=== PATIENT | male | born 1950 | race Caucasian/White ===

== ENCOUNTER 2016-02-28 09:30 | Inpatient (IN) | payer BC ==
[~2016-02-28] VITALS: Ht 193 cm; Wt 113.6 kg
[2016-02-28 08:54] LABS: BASOPHILS 0.4 % (0.0-2.0); EOSINOPHILS 1.7 % (0-7); HEMATOCRIT 44.8 % (42.0-54.0); HEMOGLOBIN 15.5 g/dL (13.5-17.5); IMMATURE GRANULOCYTES 0.2 % (0-5); LYMPHOCYTES 33.8 % (15-50); MCH 33.6 pg (26.0-34.0); MCHC 34.6 g/dL (31.0-37.0); MCV 97.2 fL (80.0-100.0); MEAN PLATELET VOLUME 10.4 fL (7.4-10.4); MONOCYTES 6.5 % (2-11); NEUTROPHILS 57.4 % (40-80); PLATELET COUNT 153 10x3/uL (130-400); RBC 4.61 10x6/uL (4.20-6.10); RDW 12.5 % (11.5-14.5); WBC 5.2 10x3/uL (4.8-10.8)
[2016-02-28 09:02] LABS: APTT 31.4 SECONDS (22.8-39.4); INR 1.06 (0.85-1.17); PROTIME 13.6 SECONDS (11.6-15.0)
[2016-02-28 09:17] LABS: CALC OSMOLALITY 278 mosm/kg (275-300); CALCIUM 9.1 mg/dL (8.5-10.1); CARBON DIOXIDE 27.4 mmol/L (21.0-32.0); CHLORIDE - SERUM 105 mmol/L (98-107); CREATININE - SERUM 0.8 mg/dL (0.6-1.3); GLUCOSE 115 mg/dL (74-106); POTASSIUM - SERUM 4.2 mmol/L (3.5-5.1); SODIUM 140 mmol/L (136-145); UREA NITROGEN 11 mg/dL (7-18); eGFR NON AFRICAN AMERICAN > 90 mL/min (90-120)
[~2016-02-28 09:30] MED LIST: PRAVACHOL40 MG PO; PRINIVIL20 MG PO; RYTHMOL225 MG PO
[2016-02-28 09:45] LABS: APPEARANCE CLEAR (CLEAR); BILIRUBIN NEGATIVE (NEGATIVE); COLOR YELLOW (YELLOW); GLUCOSE NEGATIVE (NEGATIVE); KETONE NEGATIVE (NEGATIVE); LEUKOCYTE ESTERASE 1+ (NEGATIVE); NITRITE NEGATIVE (NEGATIVE); PROTEIN NEGATIVE (NEGATIVE); SPECIFIC GRAVITY 1.015 (1.005-1.020); UROBILINOGEN NORMAL (NORMAL)
[2016-02-28 09:46] LABS: BACTERIA FEW /hpf (NONE SEEN); EPITHELIAL CELLS 0-5 /hpf (0-5); MUCUS <1+ /lpf (NONE SEEN)
[2016-03-03] VITALS (10 sets, daily range): BP systolic 96–123; BP diastolic 62–80; Ht 193 cm; Wt 113.6 kg
--- NOTE | 2016-03-03 08:34 | NUR ---
LEFT LEG AND FOOT WASHED WITH HIBICLENS AND ALCOHOL PRIOR TO CHLORPREP PER D.N.
--- NOTE | 2016-03-03 09:50 | NUR ---
RECEIVED TO ROOM 2209 AT THIS TIME FROM THE RECOVERY ROOM VIA BED. ALERT AND ORIENTED X4 AND DENIES PAIN. PEDAL PULSE PALPABLE AND STRONG. DRESSING TO LEFT KNEE INCISION C/D/I. ICE PACK IN USE. SCD'S ON AND IN WORKING ORDER. VITAL SIGNS INITIATED PER POST PROCEDURE PROTOCOL. BED ALARM ON AND IN WORKING ORDER. PT DRINKING ICE WATER WITH NAUSEA. IV TO LEFT FOREARM PATENT WITH NO S/S OF INFILTRATION PRESENT. CALL LIGHT IN REACH, WILL CONTINUE WITH PLAN OF CARE.
--- NOTE | 2016-03-03 12:21 | NUR ---
SCHEDULED ANTIBIOTIC ADMINISTERED AT THIS TIME. PERIPHERAL PULSE CHECK PERFORMED AND PEDAL PULSES PALPABLE AND STRONG TO BILATERAL LE. PT REPORTS NO PAIN HE DOES NOT HAVE SENSATION IN HIS LLE. PT IS ABLE TO WIGGLE TOES IN LEFT FOOT AND EXTREMITY IS WARM AND PINK. FIANCE AT BEDSIDE. INCENTIVE SPIROMETER IN USE INDEPENDENTLY. TELEMETRY APPLIED PER ORDER. DENIES NEEDS AT PRESENT TIME. SCD'S AND BED ALARM ON. WILL CONTINUE WITH PLAN OF CARE.
--- NOTE | 2016-03-03 14:51 | OP ---
PATIENT NAME: JAI OVALLE MEDICAL RECORD: [id number] :54 LOCATION:D.MS [facility] ADMISSION DATE:03/03/16 SURGEON: MAGGY MURPHY MD DATE OF OPERATION: 03/03/2016 PREOPERATIVE DIAGNOSIS: Severe degenerative arthritis of the left knee. POSTOPERATIVE DIAGNOSIS: Severe degenerative arthritis of the left knee. PROCEDURE: Left total knee arthroplasty. Surgeon: Maggy Murphy MD ANESTHESIA: General. INTRAOPERATIVE COMPLICATIONS: None. SUMMARY OF PATHOLOGIC FINDINGS: The patient had severe tricompartmental osteoarthritis, left knee. IMPLANTS USED: Geoff triathlon total knee arthroplasty size 7, left distal femoral with the component size 7, tibial baseplate size 7 x 16, X3 polyethylene tibial bearing insert and a size 36 x 10 symmetric patella. ESTIMATED BLOOD LOSS: 50 cc. OPERATIVE SUMMARY IN DETAIL: After obtaining the appropriate preoperative orthopedic surgery consents as well as anesthetic consultation, evaluation and clearance, the patient was brought to the operating room and placed on the operating table in supine position. After general laryngeal mask was administered, tourniquet was placed about the proximal aspect of left lower extremity. Left lower extremity was then prepped and draped in routine sterile fashion. The leg was elevated and exsanguinated, tourniquet inflated to 350 mmHg. Midline incision was taken down for paramedian arthrotomy. Patella was everted, distal femur was exposed. Soft tissue excision was done in the usual fashion. Intramedullary guide hole was created for distal femoral intramedullary guided cuts. This was followed by complete exposure of the proximal tibia, likewise guide hole was created and the proximal tibia for proximal tibial intramedullary guided cuts. The tibial cut was made followed by the appropriate measurements and Chamfer cutting of the distal femur. Trials corresponding to the size of the above-mentioned implants were put into place, taken through range of motion and found to be stable in all planes. Distal femoral and proximal tibial final preparations were followed by excision of the articular surface of the patella for replacement with 10 mm x 36 patella. These final preparations were made. The knee was then irrigated using pulsatile lavage manager care. Bone ends were dried. Final components were cemented into place. All excess cement was removed. After the cement was allowed to harden, the knee was taken through a range of motion and found to be stable in all planes with good patellar tracking. Paramedian arthrotomy was closed with #2 Ethibond followed by #1 Vicryl, 2-0 Vicryl and skin mikaela. Sterile dressings were applied. Tourniquet was deflated. The patient was awakened, taken to the recovery room in stable condition. All final needle and sponge counts were correct. TRANSINT:[id number] Voice Confirmation ID: [id number] DOCUMENT ID: [id number] OPERATIVE REPORT [id number] JAI OVALLE MD, MAGGY ALLISON at 1451 CC: [id number] DICTATION DATE: 03/03/16918 TOP COLLAR BASTER: 03/03/16950 ADM IN [place] [id number] [place] [id number]
--- NOTE | 2016-03-03 19:35 | NUR ---
RECIVED SHIFT REPORT. PT IS LYING IN BED. ALERT AND ORIENTED AND ABLE TO VERBALIZE NEEDS. IV IS PATENT AND FLUIDS ARE RUNNING PER ORDER. SCD'S ON. CPM ON AT THIS TIME. DRESSING TO LEFT KNEE C/D/I. PT DENIES ANY PAIN AT THIS TIME. NO NEEDS ARE VERBALIZED AT THIS TIME. VISITOR AT BEDSIDE. WILL CONTINUE TO MONITOR. SIDE RAILS ARE UP X 2. BED IS IN LOWEST POSITION. BED ALARM IS ON FOR SAFETY. CALL LIGHT IS WITHIN REACH.
--- NOTE | 2016-03-03 21:21 | CN ---
PATIENT NAME:JAI OVALLE MEDICAL RECORD: [id number] : 54 LOCATION:D.MS [facility] ADMIT DATE: 03/03/16 ACCOUNT: [id number] CONSULTING PHYSICIAN: GIOVANY RAGLAND DO REFERRING PHYSICIAN: MAGGY MURPHY MD DATE OF CONSULTATION: 03/03/2016 [facility] CONSULTATION HISTORY OF PRESENT ILLNESS: Mr. Ovalle is a 65-year-old white male who was seen postop medical management after undergoing a left total knee by Dr. Murphy. His primary care physician is Dr. Joel Pathak. He has a known history of osteoarthritis, hypertension, hyperlipidemia and atrial fib in the past. He apparently had some atrial fib in surgery. He has never taken anticoagulants. He denies any chest pain or shortness of breath. He is doing well right now and his pain is controlled. PAST MEDICAL HISTORY: Significant for known hypertension, atrial fibrillation, osteoarthritis and hyperlipidemia. PAST SURGICAL HISTORY: Include T&A, surgeries to the neck and back. ALLERGIES: None known. HOME MEDICATIONS: Pravastatin 40 mg a day, lisinopril 20 mg a day and Rythmol 225 q.8 hours. FAMILY HISTORY: Significant for cardiovascular disease. SOCIAL HISTORY: The patient is a previous smoker. REVIEW OF SYSTEMS: He denies any recent fever, chills or sweats. Denies any recent chest pain, shortness of breath or palpitations. No recent change in bladder or bowel habits. PHYSICAL EXAMINATION: HEENT: Head is normocephalic. Sclerae nonicteric. NECK: Soft and supple. HEART: Regular at this time. LUNGS: Good breath sounds bilaterally. ABDOMEN: Soft. EXTREMITIES: Left knee dressing is dry and intact. Distal pulses are okay. NEUROLOGIC: Without any focal deficits. IMPRESSION: 1. Status post left total knee. 2. Intermittent atrial fibrillation, hypertension, hyperlipidemia, osteoarthritis and family history of cardiovascular disease. PLAN: Telemetry for now. Repeat EKG in a.m. Monitor H&H postoperatively. We will follow along. TRANSINT:[id number] Voice Confirmation ID: [id number] DOCUMENT ID: [id number] CONSULT REPORT [id number] JAI OVALLE GIOVANY RAGLAND DO at 2121 CC: [id number] DICTATION DATE: 03/03/16 1654 ASW/ASUW TACTICAL AIR CONTROLLER: 03/03/16 193 ADM IN [facility] [address] [facility], [facility]
--- NOTE | 2016-03-03 21:37 | NUR ---
SHIFT ASSESSMENT COMPLETED. NIGHT MEDS GIVEN WITH NO PROBLEMS. PT DENIES ANY PAIN AT THIS TIME BUT IS REQUESTING A PAIN PILL. ADMINISTERED PRESCRIBED PRN NORCO PER ORDER. DENIES FURTHER NEEDS. WILL MONITOR. VISITOR AT BEDSIDE. SIDE RAILS X 2. BED LOW. BED ALARM ON. CALL LIGHT IN REACH.
[2016-03-04] VITALS (7 sets, daily range): BP systolic 95–124; BP diastolic 56–77
[2016-03-04 05:45] LABS: BASOPHILS 0 % (0.0-2.0); EOSINOPHILS 0 % (0-7); HEMATOCRIT 38.7 % (42.0-54.0); HEMOGLOBIN 13.3 g/dL (13.5-17.5); IMMATURE GRANULOCYTES 0.1 % (0-5); LYMPHOCYTES 11.4 % (15-50); MCH 33.1 pg (26.0-34.0); MCHC 34.4 g/dL (31.0-37.0); MCV 96.3 fL (80.0-100.0); MEAN PLATELET VOLUME 10.7 fL (7.4-10.4); NEUTROPHILS 81.5 % (40-80); PLATELET COUNT 149 10x3/uL (130-400); RBC 4.02 10x6/uL (4.20-6.10); RDW 12.2 % (11.5-14.5); WBC 13.5 10x3/uL (4.8-10.8)
[2016-03-04 05:58] LABS: ALBUMIN 2.9 g/dL (3.4-5.0); ALKALINE PHOSPHATASE 42 U/L (46-116); ALT (SGPT) 17 U/L (10-68); BILIRUBIN - TOTAL 0.58 mg/dL (0.2-1.3); CALC OSMOLALITY 272 mosm/kg (275-300); CALCIUM 8.5 mg/dL (8.5-10.1); CARBON DIOXIDE 25.7 mmol/L (21.0-32.0); CHLORIDE - SERUM 102 mmol/L (98-107); CREATININE - SERUM 0.8 mg/dL (0.6-1.3); GLUCOSE 169 mg/dL (74-106); POTASSIUM - SERUM 4.6 mmol/L (3.5-5.1); PROTEIN - SERUM 5.8 g/dL (6.4-8.2); SODIUM 135 mmol/L (136-145); UREA NITROGEN 10 mg/dL (7-18); eGFR NON AFRICAN AMERICAN > 90 mL/min (90-120)
--- NOTE | 2016-03-04 08:12 | NUR ---
AWAKE AND ALERT. ORIENTED X 3. LUNGS ARE CLEAR BILATERALLY, NO COUGH NOTED. INSTRUCTED IN USE OF IS WITH RETURN DEMONSTRATION. SKIN IS INTACT WITHOUT REDNESS EXCEPT INCISION TO LEFT KNEE WHICH HAS A DRY INTACT DRESSING IN PLACE. CPM REMOVED AT THIS TIME. IV TO LEFT FOREARM IS PATENT WITHOUT REDNESS AT INSERTION SITE. SCD'S IN PLACE. DENIES NEEDS.
--- NOTE | 2016-03-04 08:50 | NUR ---
SITTING UP IN BED EATING BREAKFAST. REPORTS PAIN LEVEL 2. GIVEN ONE HYDROCODONE PO FOR PAIN MANAGEMENT PRIOR TO THERAPY. WILL MONITOR.
--- NOTE | 2016-03-04 11:30 | NUR ---
SITTING UP IN CHAIR AT BEDSIDE. DISCUSSED REASONS TO USE AFO ON LEFT FOOT. WILL ASK PT ABOUT THIS. DENIES PAIN OR DISCOMFORT.
[2016-03-04 12:44] LABS: MAGNESIUM - SERUM 1.7 mg/dL (1.8-2.4); THYROID STIMULATING HORMONE 0.15 uIU/mL (0.36-3.74)
--- NOTE | 2016-03-04 15:21 | NUR ---
* Is the patient Alert and Oriented? Yes 0 * How many steps to enter\exit or inside your home? 3 0 * PCP Dr. Joel Pathak 0 * Pharmacy [facility] 0 * Preadmission Environment Home with Family 0 * ADLs Independent 0 * List name and contact numbers for known caregivers / representatives who currently or will assist patient after discharge: John Bearden [phone] 0 * Additional services required to return to the preadmission environment? Yes 0 * Can the patient safely return to the preadmission environment? Yes 0 * Has this patient been hospitalized within the prior 30 days at any hospital? No 03/04/2016 15:22 DCP: Discharge Planning Patient Name: JAI OVALLE Admission Status: Elective Accout number: [id number] Admission Date: 03-03-2016 : 1950 Admission Diagnosis: Attending: CHIKI Current LOS: 1 Anticipated DC Date: 03-06-2016 Planned Disposition: Home Primary Insurance: [employer] Discharge Planning Comments: CM met with patient to assess dc plans/needs. Patient states he lives at home with his Monisha padgett. He reports he is independent with all ADL's & IADL's. He has chosen [facility] for OP therapy. Appt. scheduled 03/07 @ 1300 - Rx faxed. Walker, CPM & BSC have been ordered by MD office prior to admission through [facility]. Walker will be delivered to the hospital prior to discharge, other to the home. CM will follow.
--- NOTE | 2016-03-04 19:25 | NUR ---
ATE ALL OF SUPPER. FIANCE AT BEDSIDE. CPM ON AT 1800. NO CHANGES NOTED. DENIES NEEDS.
--- NOTE | 2016-03-04 19:45 | NUR ---
RECIEVED SHIFT REPORT. PT IS LYING IN BED. ALERT AND ORIENTED AND ABLE TO VERBALIZE NEEDS. IV IS PATENT AND SALINE LOC AT THIS TIME. SCD'S ON. CPM ON. DRESSING TO LEFT KNEE C/D/I. PT STATES PAIN IS 5/10. NO NEEDS ARE VERBALIZED AT THIS TIME. WILL CONTINUE TO MONITOR. FAMILY AT BEDSIDE. SIDE RAILS ARE UP X 2. BED IS IN LOWEST POSITION. BED ALARM IS ON FOR SAFETY. CALL LIGHT IS WITHIN REACH.
--- NOTE | 2016-03-04 20:10 | NUR ---
SHIFT ASSESSMENT COMPLETED. NIGHT MEDS GIVEN WITH NO PROBLEMS. PT C/O PAIN 07/02. ADMINISTERED PRESCRIBED PRN NORCO PER ORDER. DENIES FURTHER NEEDS. WILL MONITOR. SIDE RAILS X 2. BED LOW. BED ALARM ON. CALL LIGHT IN REACH.
[2016-03-05 05:00] VITALS: BP 110/70
[2016-03-05 06:10] LABS: BASOPHILS 0.1 % (0.0-2.0); EOSINOPHILS 0.1 % (0-7); HEMATOCRIT 33.6 % (42.0-54.0); HEMOGLOBIN 11.5 g/dL (13.5-17.5); IMMATURE GRANULOCYTES 0.2 % (0-5); LYMPHOCYTES 20.2 % (15-50); MCH 33.3 pg (26.0-34.0); MCHC 34.2 g/dL (31.0-37.0); MCV 97.4 fL (80.0-100.0); MEAN PLATELET VOLUME 10.5 fL (7.4-10.4); MONOCYTES 9.1 % (2-11); NEUTROPHILS 70.3 % (40-80); RBC 3.45 10x6/uL (4.20-6.10); RDW 12.5 % (11.5-14.5)
[2016-03-05 06:19] LABS: PLATELET COUNT 110 10x3/uL (130-400)
[2016-03-05 07:06] LABS: ALBUMIN 2.7 g/dL (3.4-5.0); ALKALINE PHOSPHATASE 33 U/L (46-116); ALT (SGPT) 17 U/L (10-68); BILIRUBIN - TOTAL 0.61 mg/dL (0.2-1.3); CALC OSMOLALITY 273 mosm/kg (275-300); CALCIUM 7.9 mg/dL (8.5-10.1); CARBON DIOXIDE 27.4 mmol/L (21.0-32.0); CHLORIDE - SERUM 103 mmol/L (98-107); CREATININE - SERUM 0.7 mg/dL (0.6-1.3); POTASSIUM - SERUM 4.1 mmol/L (3.5-5.1); PROTEIN - SERUM 5.5 g/dL (6.4-8.2); SODIUM 137 mmol/L (136-145); UREA NITROGEN 11 mg/dL (7-18); eGFR NON AFRICAN AMERICAN > 90 mL/min (90-120)
[2016-03-05 07:08] LABS: GLUCOSE 109 mg/dL (74-106)
--- NOTE | 2016-03-05 08:27 | NUR ---
AWAKE AND ALERT. ORIENTED X3. NO C/O AT THIS TIME. LUNGS ARE CLEAR BILATERALLY, NO COUGH NOTED. REPORTS USING IS INSTRUCTED. SKIN IS INTACT WITHOUT REDNESS EXCEPT INCISION TO LEFT KNEE WHICH HAS A DRY INTACT DRESSING IN PLACE. SL TO LEFT FOREARM IS PATENT WITHOUT REDNESS AT INSERTION SITE. SCD'S IN PLACE. DENIES NEEDS. BREAKFAST SERVED IN ROOMM.
[2016-03-05 08:47] VITALS: BP 104/74
--- NOTE | 2016-03-05 09:45 | NUR ---
AMBULATED IN HALLWAY WITH PT USING RW. REQUESTED AND GIVEN ONE HYDROCODONE PO FOR C/O LEFT KNEE PAIN LEVEL 5 WITH ACTIVITY. WILL MONITOR.
[2016-03-05 12:30] VITALS: BP 106/75
[2016-03-05 17:29] VITALS: BP 112/73
--- NOTE | 2016-03-05 18:00 | NUR ---
ATE ALL OF SUPPER. NO C/O AT THIS TIME. DENIES NEEDS. CPM IN PLACE AT THIS TIME.
--- NOTE | 2016-03-05 19:33 | NUR ---
PATIENT IN SEMI-FOWLERS POSITION ON CPM MACHINE. PATIENT STATED HIS PAIN IS A 3 AND HE DOES NOT WANT ANYTHING FOR PAIN UNTIL HE GOES TO BED.
[2016-03-05 21:00] VITALS: BP 108/65
[2016-03-06 05:46] LABS: BASOPHILS 0.2 % (0.0-2.0); EOSINOPHILS 1.2 % (0-7); HEMATOCRIT 34.9 % (42.0-54.0); HEMOGLOBIN 11.6 g/dL (13.5-17.5); IMMATURE GRANULOCYTES 0.2 % (0-5); LYMPHOCYTES 28.9 % (15-50); MCHC 33.2 g/dL (31.0-37.0); MCV 99.1 fL (80.0-100.0); MEAN PLATELET VOLUME 10.9 fL (7.4-10.4); MONOCYTES 8.7 % (2-11); NEUTROPHILS 60.8 % (40-80); PLATELET COUNT 114 10x3/uL (130-400); RBC 3.52 10x6/uL (4.20-6.10); RDW 12.6 % (11.5-14.5); WBC 8.4 10x3/uL (4.8-10.8)
[2016-03-06 06:26] LABS: ALBUMIN 2.5 g/dL (3.4-5.0); ALKALINE PHOSPHATASE 32 U/L (46-116); ALT (SGPT) 16 U/L (10-68); CALC OSMOLALITY 269 mosm/kg (275-300); CHLORIDE - SERUM 100 mmol/L (98-107); CREATININE - SERUM 0.7 mg/dL (0.6-1.3); GLUCOSE 104 mg/dL (74-106); POTASSIUM - SERUM 4.3 mmol/L (3.5-5.1); PROTEIN - SERUM 5.5 g/dL (6.4-8.2); SODIUM 135 mmol/L (136-145); UREA NITROGEN 13 mg/dL (7-18); eGFR NON AFRICAN AMERICAN > 90 mL/min (90-120)
--- NOTE | 2016-03-06 07:55 | NUR ---
AWAKE AND ALERT. ORIENTED X3. NO C/O AT THIS TIME. ON CPM NOW. SCD'S IN PLACE. LUNGS ARE CLEAR BILATERALLY, NO COUGH NOTED. SKIN IS INTACT WITHOUT REDNESS EXCEPT INCISION TO LEFT KNEE WHICH HAS A DRY INTACT DRESSING IN PLACE. SL TO LEFT FOREARM IS PATENT WITHOUT REDNESS AT INSERTION SITE. DENIES NEEDS.
[2016-03-06] MEDS ORDERED: ELIQUIS2.5 MG PO (08:11)
[2016-03-06] MEDS ORDERED: HYDROCODONE-APA1 TAB PO (08:11)
[2016-03-06 09:08] VITALS: BP 124/78
--- NOTE | 2016-03-06 09:09 | NUR ---
03/06/2016 9:06 DCP: Discharge Planning Patient Name: JAI OVALLE Encounter No: [id number] : 1950 Primary Insurance: [employer] Anticipated DC Date: 03-06-2016 Planned Disposition: Outpatient PT\OT External Planned Provider: [facility] DCP follow-up note: DC order rec'd. Patient and family in agreement with discharge plan. Walker has been delivered to hospital. CPM & BSC will be delivered to the home this afternoon. Answered questions & concerns. Maria Alejandra Champion
--- NOTE | 2016-03-06 09:30 | NUR ---
DISCHARGE ORDERS RECEIVED. WAITING ON RIDE HOME.
--- NOTE | 2016-03-06 12:15 | NUR ---
DRESSING CHANGED TO LEFT KNEE. SL TO LEFT FOREARM D/C WITH CATHETER INTACT. DISCHARGE INSTRUCTIONS GIVEN BOTH VERBALLY AND WRITTEN. ALL QUESTIONS ANSWERED. PATIENT AND FAMILY VERBALIZED UNDERSTANDING OF SAME. NEEDED PRESCRIPTIONS GIVEN TO PATIENT. DISCHARGED TO HOME VIA WC.
[2016-03-06 12:30] VITALS: BP 97/67
--- NOTE | 2016-03-07 11:11 | CN ---
PATIENT NAME:JAI OVALLE MEDICAL RECORD: [id number] : 54 LOCATION:D.MS [facility] ADMIT DATE: 03/03/16 ACCOUNT: [id number] CONSULTING PHYSICIAN: JENIFER FUENTES MD REFERRING PHYSICIAN: MAGGY MURPHY MD DATE OF CONSULTATION: 03/03/2016 Cardiology Consultation ADMITTING DIAGNOSES: 1. Paroxysmal atrial fibrillation. 2. Hypertension. 3. Hyperlipidemia. HISTORY OF PRESENT ILLNESS: This is a gentleman who had a total knee done, has history of atrial fibrillation on propafenone. Initial EKG was sinus rhythm; however, today's EKG is atrial fibrillation, controlled rate. Previously, he was on Eliquis as well as the propafenone. The Eliquis is on hold. PHYSICAL EXAMINATION: GENERAL APPEARANCE: Well-nourished, well-developed, appears stated age. Level of distress, comfortable. PSYCHIATRIC: Mental status, alert, normal affect. Orientation, oriented to time, place and person. EYES: Lids and conjunctiva, noninjected. No discharge, no pallor. ENT: Lips, teeth, gums, normal dentition. Oropharynx, no cyanosis, no pallor. NECK: Carotid arteries, bilateral normal upstroke, no bruits, no thrills. JUGULAR VEINS: No jugular venous pressure or distention. CERVICAL LYMPH NODES: Nontender, nonenlarged. THYROID: Not enlarged. Nontender. No nodules. LUNGS: Respiratory effort, unlabored. CHEST: Normal curvature. No thoracic deformity. No chest wall tenderness. Percussion, resonant. Auscultation, clear. No wheezes, no rales, no rhonchi. CARDIOVASCULAR: Precordial exam, nondisplaced. No heaves or pericardial thrills. Heart sounds, normal S1, normal S2. No S3, no gallop, no rub. Systolic murmur, not heard. Diastolic murmur, not heard. EXTREMITIES: No cyanosis, no edema. Peripheral pulses, full and equal in all extremities, except as noted. No bruits appreciated. ABDOMEN: Soft, nondistended. Normal aorta. No bruit. Nontender. No masses. Liver, nontender, no hepatomegaly. Spleen, nontender, no splenomegaly. MUSCULOSKELETAL: No joint tenderness. No joint swelling. No erythema. NEUROLOGICAL: Normal gait, normal strength, normal tone. SKIN: Warm and dry. REVIEW OF SYSTEMS: The patient reports easy bruising but reports no swollen glands. The patient reports no fever, no night sweats, no significant weight gain, no significant weight loss. No significant exercise tolerance. The patient reports no dry eyes, no irritation, no vision change. Patient reports no difficulty hearing and no ear pain. Patient reports no frequent nose bleeds or nose and sinus problems. Patient reports on arm pain on exertion. No shortness of breath while lying down. No history of heart murmur. Patient reports no cough, no wheezing or coughing up blood. Patient reports no abdominal pain, no vomiting. Normal appetite. No diarrhea and not vomiting blood. No nausea and no constipation. Patient reports no incontinence. No difficulty urinating. No hematuria. No increased frequency. Patient reports CONSULT REPORT [id number] JAI OVALLE no muscle aches. No weakness, no arthralgias, no back pain. No swelling of the extremities. Patient reports no abnormal mole, no jaundice, no rashes. Reports no loss of consciousness. No weakness and no numbness. No seizures, dizziness, or headaches. The patient reports no depression, no sleep disturbance, feeling safe in a relationship and no alcohol abuse. Patient reports on fatigue. Reports no runny nose or sinus pressure. No itching, no hives, and no frequent sneezing. OVERALL IMPRESSION: Atrial fibrillation, do not know his atrial fibrillation burden. We will put him on telemetry, restart propafenone, hopefully he will convert back to sinus rhythm. TRANSINT:[id number] Voice Confirmation ID: [id number] DOCUMENT ID: [id number] JENIFER FUENTES MD at 1111 CC: [id number] DICTATION DATE: 03/03/16 1008 PRODUCTION DESIGNER: 03/03/16 1051 DIS IN 03/06/16 [place] [id number] [place] [address]
== END 2016-03-06 12:15 | disposition home or self-care (01) | DRG 470 ==
LOC: D.SDCHOLD 09:30 → D.MS 03-03 05:19 → D.SDCHOLD 03-03 05:19 → D.MS 03-03 09:35
PROVIDERS: Family Medicine; ADMIT Orthopaedic Surgery
PROC: 0SRD0J9 Replacement of Left Knee Joint with Synthetic Substitute, Cemented, Open Approach (ICD-10-PCS; principal; 2016-03-03 07:30)
DX: M17.12 Unilateral primary osteoarthritis, left knee (principal); I48.91 Unspecified atrial fibrillation; E78.5 Hyperlipidemia, unspecified; I44.0 Atrioventricular block, first degree

== ENCOUNTER 2017-03-04 05:10 | Day surgery (SDC) | payer BC ==
[2017-03-03 09:08] LABS: HEMATOCRIT 43.1 % (42.0-54.0); HEMOGLOBIN 14.9 g/dL (13.5-17.5); MCH 33.8 pg (26.0-34.0); MCHC 34.6 g/dL (31.0-37.0); MCV 97.7 fL (80.0-100.0); MEAN PLATELET VOLUME 9.4 fL (7.4-10.4); RBC 4.41 10x6/uL (4.20-6.10); RDW 14.1 % (11.5-14.5); WBC 5.6 10x3/uL (4.8-10.8)
[~2017-03-04] VITALS: Ht 193 cm; Wt 118.4 kg
--- NOTE | ~2017-03-04 | OP ---
PATIENT NAME: JAI OVALLE MEDICAL RECORD: [id number] :54 LOCATION:[facility] ADMISSION DATE: SURGEON: MAGGY MURPHY MD DATE OF OPERATION: 03/04/2017 PREOPERATIVE DIAGNOSIS: Osteomyelitis of the second toe, right foot metatarsal head with a plantar ulcer. POSTOPERATIVE DIAGNOSIS: Osteomyelitis of the second toe, right foot metatarsal head with a plantar ulcer. PROCEDURE: Excisional debridement with osteoclasis of the metatarsal head for complete removal and relief. OPERATIVE SUMMARY IN DETAIL: After obtaining the appropriate preoperative orthopedic surgery consent as well and anesthetic consultation, evaluation and clearance, the patient was brought to the operating room and placed on the operating table in supine position. After adequate general laryngeal mask airway was administered, tourniquet was placed about the proximal aspect of the right lower extremity. Right lower extremity was then prepped and draped in routine sterile fashion. The leg was elevated and exsanguinated, tourniquet inflated to 350 mmHg. An incision was made over the dislocated MTP joint, taken down. Copious amounts of phlegmon appeared, less so than they appeared to be on the MRI. This was removed in its entirety and proximal aspect of the first toe phalanx was also rongeured and it was taken back to stable noninfected feeling bone. At this point, dissection was carried down in the metatarsal head. The metatarsal head was resected for approximately 1.5. All of this bone fragment was sent for permanent section and bone culture, regular cultures were taken as well. At this point, the wound was copiously irrigated. It was closed with 2-0 Vicryl followed by 4-0 Prolene in running fashion. Sterile dressings were applied. Tourniquet was deflated. The patient was awakened and taken to recovery room in stable condition. All final needle and sponge counts were correct. TRANSINT:[id number] Voice Confirmation ID: [id number] DOCUMENT ID: [id number] MAGGY MURPHY MD at 1444 CC: [id number] DICTATION DATE: 03/05/17 1216 NATIONAL DEDICATED TRUCK DRIVER: 03/05/17 1409 [facility] 03/04/17 [place] [address]
[~2017-03-04 05:10] MED LIST changes: +BACTRIM DS TABL1 TAB PO; +CARDIZEM60 MG PO; +ELIQUIS2.5 MG PO; +HYDROCODONE-APA1 TAB PO; +XARELTO20 MG PO
[2017-03-04 10:53] VITALS: BP 126/87; Ht 193 cm; Wt 118.4 kg
[2017-03-04] MEDS ORDERED: HYDROCODONE-APA1 TAB PO (12:36)
[2017-03-04] MEDS ORDERED: BACTRIM DS TABL1 TAB PO (12:37)
== END 2017-03-04 14:50 | disposition home or self-care (01) ==
LOC: D.OPS 05:10
PROVIDERS: Anesthesiology
DX: L97.519 Non-pressure chronic ulcer of other part of right foot with unspecified severity (principal); I10 Essential (primary) hypertension; I48.91 Unspecified atrial fibrillation; M17.0 Bilateral primary osteoarthritis of knee; Z01.812 Encounter for preprocedural laboratory examination; M86.8X7 Other osteomyelitis, ankle and foot

== ENCOUNTER 2017-08-05 11:51 | Outpatient (CLI) | payer BC ==
[~2017-08-05] VITALS: Ht 190.5 cm; Wt 113.6 kg
--- NOTE | ~2017-08-05 | HEMODYNAMI ---
PATIENT:JAI OVALLE MEDICAL RECORD: [id number] : 54 LOCATION:DTorreyCAT ADMISSION DATE: 08/05/17 Generatedon:08/05/201715:06 Patient name: JAI OVALLE Patient #: [id number] SSN: D OB: 1950 Date of study: 08/05/2017 Page: Of Hemodynamic Procedure Report Patient Data Patient Demographics Procedure consent was obtained First Name: JAI Gender: Male Last Name: VASQUEZ : 1950 Middle Initial: E Age: 66 year(s) Patient #: [id number] Race: Unknown Additional ID: [id number] Contact details Address: [address] [place] [address] ROAD State: [place] City: [facility] Zip code: [address] Past Medical History Allergies: No known allergies Admission Admission Data Admission Date: 08/05/2017 Admission Time: 11:51 Lab Results Lab Result Date: 08/05/2017 Lab Result Time: 0:00 Biochemistry Name Units Result Min Max BUN mg/dl 11 --(-*--)-- 7 18 Creatinine mg/dl 0.8 --(-*--)-- 0.6 1.3 CBC Name Units Result Min Max Hemoglobin g/dl 15.5 --(-*--)-- 13.5 17.5 Procedure Procedure Types Cath Procedure Diagnostic Procedure LHC LH w/Coronaries FFR/IVUS Intra-Coronary IVUS Initial Sedation Charges Moderate Sedation up to 15 minutes Procedure Description Procedure Date Procedure Date: 08/05/2017 Procedure Start Time: 14:37 Procedure End Time: 15:03 Procedure Staff Name Function Kvng Silvestre MD Performing Physician Riley Mcgarry RT Monitor Pretty Bello RT Scrub Landon Rivas RN Nurse Procedure Data Cath Procedure Fluoroscopy Diagnostic fluoroscopy Total fluoroscopy Time: 6.6 time: 6.6 min min Diagnostic fluoroscopy Total fluoroscopy dose: dose: 1434 mGy 1434 mGy Contrast Material Contrast Material Type Amount (ml) Isovue 300 79 Entry Location Entry Primary Successful Side Size Upsize Upsize Entry Closure Cramer ccessful Closure Location (Fr) 1 (Fr) 2 (Fr) Remarks Device Remarks Radial Right 6 Fr Mechanical artery Short Compression Estimated blood loss: 10 ml Diagnostic catheters Device Type Used For End Catheter Placement DIAGNOSTIC Jacques 110cm Procedure 5Fr catheter ([id number]) Procedure Complications No complications Procedure Medications Medication Administration Route Dosage 0.9% NaCl I.V. 100 ml/hr Oxygen etCO2 Nasal cannula 2 l/min Heparin Flush Bag added to field 2 bags (1000units/500ml NS) Lidocaine 1% added to field 20 Radial Cocktail added to field 1 syringe (Verapomil 2mg/Nitro 400mcg/Heparin 1500units) Versed I.V. 2 mg Fentanyl I.V. 100 mcg Radial Cocktail I.A. 1 syringe (Verapomil 2mg/Nitro 400mcg/Heparin 1500units) Heparin Bolus I.V. 7000 units Hemodynamics Rest HGB: 15.5 (g/dl) Heart Rate: 53 (bpm) Pressure Samples Time Site Value (mmHg) Purpose Heart Use Rate(bpm) 14:40 LV 122/0,16 Snapshot 62 14:40 AO 105/68(83) Pullback 70 14:40 LV 115/0,12 Pullback 70 Gradients Valve Time Site 1 Site 2 Mean SEP/DFP Peak To Heart Use (mmHg) (sec/min) Peak Rate (mmHg) (bpm) Aortic 14:40 LV AO 3 4 10 70 115/0,12 105/68(83) Calculations Valve P-P Mean Valve Index Valve Source Name Gradient Area Flow (cm2) Aortic 10 3 10 3 Snapshots Pre Cath Intra NCS Post Cath Vital Signs Time Heart Resp SPO2 etCO2 NIBP (mmHg) Rhythm Pain Sedation Rate (ipm) (%) (mmHg) Status Level (bpm) 14:25:20 71 28 97 0 123/87(108) A-Fib 0 (11) 10(A) , No pain 14:29:59 60 21 100 11.2 127/82(107) A-Fib 0 (11) 10(A) , No pain 14:34:38 69 16 92 1.5 112/77(102) A-Fib 0 (11) 10(A) , No pain 14:39:53 59 13 90 9.7 104/72(85) A-Fib 0 (11) 9(A) , No pain 14:45:04 65 14 93 13.4 119/80(96) A-Fib 0 (11) 9(A) , No pain 14:49:43 59 15 94 11.2 122/82(96) A-Fib 0 (11) 9(A) , No pain 14:54:21 67 16 97 10.5 119/82(103) A-Fib 0 (11) 9(A) , No pain 14:59:02 65 17 98 4.5 109/73(100) A-Fib 0 (11) 9(A) , No pain 15:03:37 58 18 98 0 121/86(105) A-Fib 0 (11) 10(A) , No pain Medications Time Medication Route Dose Verified Delivered Reason Not es Effectiveness by by 14:22:48 0.9% NaCl I.V. 100 Landon Landon Per physician ml/hr Evelyn Rivas RN RN 14:22:58 Oxygen etCO2 2 l/min Landon Landon Per physician Nasal Klarissaigan Evelyn cannula RN RN 14:23:11 Heparin Flush added 2 bags Landon Landon used for Bag to Lorigan Lorrachelle procedure (1000units/500ml RN RN NS) 14:24:10 Lidocaine 1% added 20ml Landon Landon for local to vial Lorigan Lorigan anesthetic RN RN 14:24:27 Radial Cocktail added 1 Landon Landon used for (Verapomil to syringe Lorigan Lorigan procedure 2mg/Nitro RN RN 400mcg/Heparin 1500units) 14:34:29 Versed I.V. 2 mg Landon Landon for sedation Evelyn Rivas RN RN 14:34:39 Fentanyl I.V. 100 mcg Landon Landon for sedation Evelyn Rivas RN RN 14:38:23 Radial Cocktail I.A. 1 Landon Kvng for (Verapomil syringe Evelyn Silvestre MD vasodilation 2mg/Nitro RN 400mcg/Heparin 1500units) 14:52:01 Heparin Bolus I.V. 7,000 Landon Kvng for units Evelyn Silvestre MD anticoagulation [employer] Log Time Note 13:49:30 Signed procedure consent form obtained from patient. 13:49:32 Time tracking: Regular hours (M-F 7:00 - 5:00) 13:49:36 Plan of Care:Hemodynamics will remain stable., Cardiac rhythm will remain stable., Comfort level will be maintained., Respiratory function will remain adequate., Patient/ family verbilizes understanding of procedure., Procedure tolerated without complication., Recovers from procedure without complications.. 13:51:04 H&P Date Dictated: 07/28/2017 Within 30 days and on chart., H&P Addendum completed by physician on day of procedure. (MUST COMPLETE FOR ALL OUTPATIENTS). 13:51:20 Patient allergic to No known allergies 13:51:45 Lab Result : BUN 11 mg/dl 13:51:45 Lab Result : Creatinine 0.8 mg/dl 13:51:45 Lab Result : Hemoglobin 15.5 g/dl 14:06:36 Landon Rivas RN sent for patient. Start room use. 14:13:54 Patient received from Pre/Post Procedure Room to CCL 1 Alert and oriented. Tansferred to table in Supine position. 14:13:56 Warm blankets applied, and ozzie hugger turned on for patient comfort. 14:13:56 Correct patient and procedure confirmed by team. 14:13:57 ECG and BP/O2 sat monitors applied to patient. 14:14:05 Pre-procedure instructions explained to patient. 14:14:06 Pre-op teaching completed and patient verbalized understanding. 14:14:07 Family in waiting room. 14:14:09 Patient NPO since Midnight. 14:22:48 0.9% NaCl 100 ml/hr I.V. was administered by Landon Rivas RN; Per physician; 14:22:58 Oxygen 2 l/min etCO2 Nasal cannula was administered by Landon Rivas RN; Per physician; 14:23:11 Heparin Flush Bag (1000units/500ml NS) 2 bags added to field was administered by Landon Rivas RN; used for procedure; 14:24:10 Lidocaine 1% 20ml vial added to field was administered by Landon Rivas RN; for local anesthetic; 14:24:27 Radial Cocktail (Verapomil 2mg/Nitro 400mcg/Heparin 1500units) 1 syringe added to field was administered by Landon Rivas RN; used for procedure; 14:24:31 Vital chart was started 14:30:43 Baseline sample Acquired. 14:31:03 Rhythm: atrial fibrillation 14:31:05 Full Disclosure recording started 14:31:07 Is the patient allergic to Iodine/contrast media? No. 14:31:16 Is patient on blood thinner?No 14:31:16 Patient diabetic? No. 14:31:19 Previous problem with sedation/anesthesia? No ? 14:31:20 Snore? Yes 14:31:21 Sleep apnea? No 14:31:22 Deviated septum? No 14:31:22 Opens mouth fully? Yes 14:31:23 Sticks out tongue? Yes 14:31:24 Airway obstruction? No ? 14:31:27 Dentures? No ? 14:31:34 Pre procedure: right dorsailis pedis pulse 2+ Normal; easily identifiable; not easily obliterated 14:31:36 Modified Angel's test Ulnar < 7 seconds 14:31:45 Patient pain scale 0/10 ?. 14:31:59 IV patent on arrival in left forearm with 0.9% NaCl at O. 14:32:01 Lab results completed and on chart. 14:32:04 Right Radial & Right Groin area was prepped with chlora-prep and draped in sterile fashion 14:32:05 Alarms reviewed by R. N. 14:32:06 Sharps counted by scrub and verified by R.N. 14:32:10 Use device set Femoral Dx 14:32:11 ACIST Syringe (51185) opened to sterile field. 14:32:11 Bag Decanter (2002) opened to sterile field. 14:32:12 Medline Cath Pack ([id number]) opened to sterile field. 14:32:13 ACIST Hand Control (71371) opened to sterile field. 14:32:14 ACIST Manifold (77845) opened to sterile field. 14:32:14 Tegaderm 4 x 4 (1626W) opened to sterile field. 14:32:17 DIAGNOSTIC WIRE .035 260cm J wire (025879) opened to sterile field. 14:32:19 SHEATH 6Fr Prelude Radial ([id number]) opened to sterile field. 14:34:12 Physician arrived 14:34:13 --------ALL STOP TIME OUT------ 14:34:13 Final Timeout: patient, procedure, and site verified with staff and physician. All members of the team are in agreement. 14:34:15 Right Radial & Right Groin site verified by team. 14:34:17 Physical assessment completed. ASA score P 2 - A patient with mild systemic disease as per Kvng Silvestre MD. 14:34:20 Sedation plan: IV Moderate Sedation Medication:Versed, Fentanyl 14:34:29 Versed 2 mg I.V. was administered by Landon Rivas RN; for sedation; 14:34:39 Fentanyl 100 mcg I.V. was administered by Landon Rivas RN; for sedation; 14:35:03 Zero performed for pressure channel P1 14:37:22 Procedure started. 14:37:28 Local anesthetic to right radial artery with Lidocaine 1% by Kvng Silvestre MD.INITIAL ACCESS ONLY 14:37:36 A 6 Fr Short sheath was inserted into the Right Radial artery 14:38:23 Radial Cocktail (Verapomil 2mg/Nitro 400mcg/Heparin 1500units) 1 syringe I.A. was administered by Kvng Silvestre MD; for vasodilation; 14:40:13 A DIAGNOSTIC Jacques 110cm 5Fr catheter (208016) was advanced over the wire and used for Procedure. 14:40:17 LV gram done using DOMINGUEZ 14:40:18 Injector settings: Ml/sec: 5, Volume: 15, 14:40:24 EF : 60 % 14:41:22 LCA angiography performed. 14:43:02 RCA angiography performed. 14:44:09 LCA angiography performed. 14:47:38 [place] Henriette Eagleye IVUS Catheter (97681Y) opened to sterile field. 14:47:39 TUBING High Pressure Extension Tubing (Konrad) (NS9314Q) opened to sterile field. 14:47:46 BMW 300cm [place] 2 J wire ([id number]) opened to sterile field. 14:48:12 INFLATOR Merit BasixCompak (AC9729) opened to sterile field. 14:48:17 Catheter exchanged over wire. 14:51:10 GUIDE 6FR EBU 3.75 catheter ([id number]) opened to sterile field. 14:51:20 6 Fr ebu 3.75 guide catheter was inserted over the wire 14:52:01 Heparin Bolus 7,000 units I.V. was administered by Kvng Silvestre MD; for anticoagulation; 14:52:47 bmw wire advanced. 14:55:11 Wire advanced across lesion. 14:55:48 IVUS catheter advanced over wire. 14:58:19 IVUS pass to Circ lesion performed. 14:58:40 IVUS catheter removed over wire. 14:58:44 Wire removed. 14:59:08 Guide catheter removed. 14:59:27 TR BAND Large ([id number]) opened to sterile field. 14:59:48 Sheath removed intact; hemostasis achieved with Mechanical Compression to the Right Radial artery. 14:59:50 Procedure ended.(Physican Out) 15:00:14 Fluoroscopy time 06.60 minutes. 15:00:18 Fluoroscopy dose: 1434 mGy 15:00:18 Flurop Dose total: 1434 15:00:22 Contrast amount:Isovue 300 79ml. 15:00:46 Sharps counted by scrub and verified by R.N. 15:00:50 TR band inflated with 12cc of air. 15:00:51 Insertion/operative site no bleeding no hematoma. 15:00:56 Post right radial artery:stable, soft, clean and dry 15:00:58 Post Procedure Pulses reassessed and unchanged 15:00:59 Post-procedure physical assessment completed. ASA score P 2 - A patient with mild systemic disease as per Kvng Silvestre MD. 15:01:03 Post procedure rhythm: unchanged. 15:01:09 Estimated blood loss: 10 ml 15:01:10 Post procedure instruction explained to patient.Patient verbalizes understanding. 15:01:28 Patient needs reinforcement of post procedure teaching. 15:01:51 Procedure type changed to Cath procedure, Diagnostic procedure, LHC, LHC w/Coronaries, FFR/IVUS, Intra-Coronary IVUS Initial, Sedation Charges, Moderate Sedation up to 15 minutes 15:02:49 Procedure and supply charges have been captured, reviewed, submitted and are correct. 15:02:53 Procedure Complication : No complications 15:03:05 Vital chart was stopped 15:03:05 See physician's report for complete and final results. 15:03:07 Report given to Pre/Post Procedure Room. 15:03:10 Patient transfered to Pre/Post Procedure Room with Stretcher. 15:03:12 Procedure ended. 15:03:12 Full Disclosure recording stopped 15:03:15 End room use (Document Last) Device Usage Item Name Manufacture Quantity Catalog Number Hospital Part Current M inimal Lot# / Charge Number Stock Stock Serial# Code ACIST Syringe Acist 1 98430 019954 546257 233511 2 0 (02403) [employer] Inc Bag Decanter Microtek 1 228595 56979 420481 5 () Medical Inc. Medline Cath Cardinal 1 [id number] 133772 06130 500741 5 Pack Health ([id number]) ACIST Hand Acist 1 66436 638375 088579 359278 5 Control (44499) Medical Systems Inc ACIST Manifold Acist 1 99350 590829 922238 927788 5 (57812) Medical Systems Inc Tegaderm 4 x 4 3M 1 1626W 598146 726764 939827 5 (1626W) DIAGNOSTIC WIRE [place] 1 522840 209836 151952 296765 3 0 .035 260cm J wire (497059) DIAGNOSTIC Terumo 1 40-6459 584072 632326 891189 5 Jacques 110cm 5Fr catheter (067346) SHEATH 6Fr Merit 1 [id number] 811153 768716 859735 5 Prelude Radial Medical ([id number]) [place] 1 99617C 857979 386991 922390 8 Henriette Eagleye IVUS Catheter (86405U) TUBING High Merit 1 [id number] 672979 22670 670354 1 0 Pressure Medical Extension Tubing (Silvestre) (KT3379Z) BMW 300cm Castillo 1 [id number] 497697 971980 996953 5 [place] 2 J Vascular wire (7168503D) INFLATOR Merit Merit 1 BQ6123 769163 353383 912925 1 5 [employer]ent [employer] Medical (KD8787) GUIDE 6FR EBU Medtronic 1 [id number] 441833 48810 134392 1 3.75 catheter ([id number]) TR BAND Large Terumo 1 SUX51-ZVT 027826 463950 432929 4 0 (WGE74EAR) Signature Audit Courtenay Stage Time Signature Unsigned Intra-Procedure 08/05/2017 Riley Mcgarry 3:06:39 PM RT(R) Signatures Monitor : Riley Mcgarry RT Signature : Date : Time : [address] [place] [address]
[2017-08-05 12:16] VITALS: BP 135/85; Ht 190.5 cm; Wt 113.6 kg
[2017-08-05 12:39] LABS: CALC OSMOLALITY 275 mosm/kg (275-300); CALCIUM 8.8 mg/dL (8.5-10.1); CARBON DIOXIDE 24.2 mmol/L (21.0-32.0); CHLORIDE - SERUM 103 mmol/L (98-107); CREATININE - SERUM 0.8 mg/dL (0.6-1.3); GLUCOSE 87 mg/dL (74-106); POTASSIUM - SERUM 4.1 mmol/L (3.5-5.1); SODIUM 139 mmol/L (136-145); UREA NITROGEN 11 mg/dL (7-18); eGFR NON AFRICAN AMERICAN > 90 mL/min (90-120)
[2017-08-05 12:53] LABS: BASOPHILS 0.6 % (0-2); EOSINOPHILS 0.9 % (0-7); HEMATOCRIT 43.1 % (42.0-54.0); HEMOGLOBIN 15.5 g/dL (13.5-17.5); IMMATURE GRANULOCYTES 0.2 % (0-5); LYMPHOCYTES 34.3 % (15-50); MCH 35.6 pg (26.0-34.0); MCV 98.9 fL (80.0-100.0); MEAN PLATELET VOLUME 9.6 fL (7.4-10.4); MONOCYTES 10.7 % (2-11); NEUTROPHILS 53.3 % (40-80); PLATELET COUNT 188 10x3/uL (130-400); RBC 4.36 10x6/uL (4.20-6.10); RDW 13.4 % (11.5-14.5); WBC 6.4 10x3/uL (4.8-10.8)
== END 2017-08-05 19:00 | disposition home or self-care (01) ==
LOC: D.CATH 11:51
PROVIDERS: Internal Medicine Cardiovascular Disease
DX: R94.39 Abnormal result of other cardiovascular function study (principal); Z01.812 Encounter for preprocedural laboratory examination

== ENCOUNTER → 2017-11-24 14:09 | Outpatient (CLI) | payer BC ==
[2017-08-05 12:16] VITALS: BMI 31.3
[~2017-11-24 14:09] MED LIST changes: +DILAUDID2 MG PO; +ELIQUIS5 MG PO; +PACERONE200 MG PO
== END | disposition home or self-care (01) ==
LOC: D.CT 14:00
DX: I73.9 Peripheral vascular disease, unspecified (principal)

== ENCOUNTER 2017-12-07 11:20 | Day surgery (SDC) | payer BC ==
[2017-12-04 11:16] LABS: HEMATOCRIT 44.2 % (42.0-54.0); HEMOGLOBIN 15.7 g/dL (13.5-17.5); MCH 35.5 pg (26.0-34.0); MCHC 35.5 g/dL (31.0-37.0); MEAN PLATELET VOLUME 9.4 fL (7.4-10.4); RBC 4.42 10x6/uL (4.20-6.10); RDW 13.7 % (11.5-14.5); WBC 5.2 10x3/uL (4.8-10.8)
[2017-12-04 11:33] LABS: INR 1.12 (0.85-1.17)
[2017-12-04 11:34] LABS: APTT 35.3 SECONDS (22.8-39.4)
[~2017-12-07] VITALS: Ht 193 cm; Wt 111.1 kg
--- NOTE | ~2017-12-07 | OP ---
PATIENT NAME: JAI OVALLE MEDICAL RECORD: [id number] :54 LOCATION:D.OPS ADMISSION DATE: SURGEON: MAGGY MURPHY MD DATE OF OPERATION: 12/07/2017 PREOPERATIVE DIAGNOSES: 1. Osteomyelitis of the distal phalanx of the left toe. 2. Severe MTP arthritis. PROCEDURES: 1. MTP fusion, left great toe. 2. Excision of the distal phalanx of the same toe. SURGEON: Maggy Murphy MD ANESTHESIA: General. INTRAOPERATIVE COMPLICATIONS: None. SUMMARY OF PATHOLOGIC FINDINGS: The patient had severe osteoarthritis of the MTP joint with multiple osteophytes in and around the entire joint. The osteomyelitis of the distal phalanx was known. This was not explored. Excision was done to stay completely away from any portions of the infectious process. INDICATIONS: Mr. Jai Ovalle is a gentleman with a long history of drop foot as well as great toe MTP arthritis. While he wears his AFO almost all of the time. When he gets up at night, he continually stubs his toe. This led to a chronic nonhealing wound and lead to chronic osteomyelitis. While he needs other medical procedures done none will proceed until this infectious process is gone. In the meantime, he has horrible pain at the MTP joint and I felt like I could fuse his joint and take his osteomyelitis out without causing any untoward infection at the MTP fusion site. OPERATIVE SUMMARY IN DETAIL: After obtaining the appropriate preoperative orthopedic surgery consent as well as anesthetic consultation, evaluation, and clearance, the patient was brought to the operating room and placed on the operating table in the supine position. After adequate general laryngeal mask airway was administered, tourniquet was placed about the proximal aspect of left lower extremity. Left lower extremity was then prepped and draped in routine sterile fashion. Leg was elevated, exsanguinated and tourniquet was inflated to 350 mmHg. A linear incision was made over dorsal of the MTP joint. Dissection was carried down to the MTP joint splitting the extensor mechanism and retracting it. A significant amount of time was then required to take down osteophytes medially, laterally as well as dorsally. At this point, the articular surface of the MTP joint on both sides were cut in such a wedge fashion so that the patient's spinal fusion will be approximately 10 degrees extended to help with the patient's drop foot situation. The small plate from [employer] was utilized with the fusion compression screw. This was placed across the joint under fluoroscopy and then fusion was performed. This had excellent apposition with the desired angulation. Having completed this, the joint was irrigated. The extensor mechanism was closed with 2-0 Vicryl. This was followed by 4-0 Prolene in interrupted fashion. This area was then covered with an Op-Site and then attention was turned to the distal phalanx excision. A fishmouth incision was drawn and very gently the fishmouth incision was taken back to the DIP joint and the distal phalanx was disarticulated without OPERATIVE REPORT [id number] JAI OVALLE violating any of the tip area of concern. Having completed this, the area was irrigated and closed with 4-0 Prolene. Sterile dressings were applied. An L&U splint was applied. Tourniquet was deflated. The patient was awakened and then taken to recovery room in stable condition. All final needle and sponge counts were correct. TRANSINT:[id number] Voice Confirmation ID: [id number] DOCUMENT ID: [id number] JEFFREY SEPULVEDA, MAGGY ALLISON at 1351 CC: [id number] DICTATION DATE: 12/10/17 1044 SUPERVISOR SOLDERING: 12/10/17 1136 [facility] 12/07/[address] [address]
[~2017-12-07 11:20] MED LIST changes: -DILAUDID2 MG PO
[2017-12-07 12:33] VITALS: BP 150/93; Ht 193 cm; Wt 111.1 kg
[2017-12-07] MEDS ORDERED: DILAUDID2 MG PO (16:22)
== END 2017-12-07 18:00 | disposition home or self-care (01) ==
LOC: D.OPS 11:20
PROVIDERS: Anesthesiology
DX: M19.071 Primary osteoarthritis, right ankle and foot (principal); M86.9 Osteomyelitis, unspecified

== ENCOUNTER 2018-04-15 12:28 | Inpatient (IN) | payer MEDICARE, BC ==
[2018-04-15] VITALS (9 sets, daily range): BP systolic 103–149; BP diastolic 62–81; BMI 12.5
[~2018-04-15] VITALS: Ht 193 cm; Wt 108.4 kg
[~2018-04-15 12:28] MED LIST changes: +ARICEPT23 MG PO; +DILAUDID2 MG PO
[2018-04-15 12:45] LABS: HEMATOCRIT 40.9 % (42.0-54.0); HEMOGLOBIN 14.4 g/dL (13.5-17.5); MCH 35.4 pg (26.0-34.0); MCHC 35.2 g/dL (31.0-37.0); MCV 100.5 fL (80.0-100.0); MEAN PLATELET VOLUME 9.6 fL (7.4-10.4); RBC 4.07 10x6/uL (4.20-6.10); RDW 12.8 % (11.5-14.5); WBC 8.8 10x3/uL (4.8-10.8)
[2018-04-15] MEDS ORDERED: BACTRIM 400-801 TAB PO (14:41)
[2018-04-15] MEDS ORDERED: VIBRAMYCIN 100100 MG PO (14:42)
[2018-04-16] VITALS (7 sets, daily range): BP systolic 102–175; BP diastolic 64–76; Ht 193 cm; Wt 108.4 kg
[2018-04-16] MEDS ORDERED: ELIQUIS5 MG PO (17:21)
[2018-04-17] VITALS: BP 128/85
[2018-04-17 04:00] VITALS: BP 133/75
[2018-04-17 09:00] VITALS: BP 114/72
[2018-04-17 14:44] VITALS: BP 113/70
[2018-04-17 18:20] VITALS: BP 115/74
[2018-04-17 20:00] VITALS: BP 130/85
[2018-04-18] VITALS: BP 111/68
[2018-04-18 09:41] VITALS: BP 144/85
[2018-04-18 14:08] VITALS: BP 137/86
[2018-04-18 18:25] VITALS: BP 154/86
[2018-04-18 20:00] VITALS: BP 146/86
[2018-04-19 04:00] VITALS: BP 161/88
[2018-04-19 08:54] VITALS: BP 130/83
--- NOTE | 2018-04-19 10:47 | OP ---
PATIENT NAME: JAI OVALLE MEDICAL RECORD: [id number] :54 LOCATION:D.MS Bull2232 ADMISSION DATE:04/15/18 SURGEON: MAGGY MURPHY MD DATE OF OPERATION: 04/15/2018 PREOPERATIVE DIAGNOSIS: Foot ulcer of the left foot. POSTOPERATIVE DIAGNOSIS: Foot ulcer of the left foot. PROCEDURE: 1. Excisional debridement, left foot to include skin, subcutaneous tissue, portions of fat and fascia. 2. Application of allograft with additional biologics and PRP. SURGEON: Maggy Murphy MD ANESTHESIA: General. INTRAOPERATIVE COMPLICATIONS: None. SUMMARY OF PATHOLOGIC FINDINGS: The patient had a full thickness left foot ulcer, did not at the time of surgery appear to involve the metatarsal at the first MTP joint of the left foot. The patient did indeed have what I think is likely multimicrobial infection based on odor and rapid advance from previous examination. OPERATIVE SUMMARY IN DETAIL: After obtaining the appropriate preoperative orthopedic surgery consent as well as anesthetic consultation, evaluation and clearance, the patient was brought to the operating room and placed on the operating table in supine position. After general laryngeal mask airway was administered, the patient's left lower extremity was prepped and draped in routine sterile fashion. This wound had measured approximately 1.5 x 1.5 x 1.5 cm in depth. It was evaluated. All necrotic tissue was removed with a combination of a scalpel, rongeur and curettage. When good bleeding bone bed was visualized, the wound was irrigated copiously with saline. At this point, Neox umbilical graft was sewn with a 4 corner quadrant and using the technique of undermining and having the Neox graft at the base. Having completed this, with good fixation, Neox Sulaiman was reconstituted 100 mg was reconstituted in approximately 8 cc of injectable saline. This was injected circumferentially about the wound. Lastly, approximately 5 cc of patient derived platelet rich plasma low neutrophil was injected underneath the graft. At this point, Adaptic dressing was placed in a pressure method with 4 x 4s, cast padding, and Kobi bandage sterilely. Having completed this, the patient was awakened and taken to recovery room in stable condition. All final needle and sponge counts were correct. TRANSINT:[id number] Voice Confirmation ID: [id number] DOCUMENT ID: [id number] OPERATIVE REPORT [id number] JAI OVALLE MDMAGGY at 1047 CC: [id number] DICTATION DATE: 04/16/18 0939 MOLD DESIGNER: 04/16/18 1029 ADM IN [place] [id number] [place] [id number]
[2018-04-19 12:47] VITALS: BP 136/82
--- NOTE | 2018-04-19 15:49 | MORECARE ---
CASE MANAGEMENT DISCHARGE SUMMARY PATIENT: JAI OVALLE UNIT: [id number] ADM DATE: 04/15/18 AGE: 67 : 54 SEX: M ROOM/BED: D.2232 AUTHOR: KELSEY ESPARZA PHYSICIAN: REFERRING PHYSICIAN: MAGGY MURPHY MD DATE OF SERVICE: 04/19/18 Discharge Plan Patient Name: JAI [facility]VALLE [facility] [facility] 1950 Planned Disposition: Home Anticipated Discharge Date: Discharge Date: Expected LOS: Initial Reviewer: [email or web address] Initial Review Date: 04/19/2018 Generated: 04/19/18 4:48 pm Patient Name: JAI OVALLE Page [phone] at 1549 All edits/amendments must be made on the electronic document DICTATION DATE: 04/19/18 1548 WIRE CHIEF: GORDON 04/19/18 1548 RPT#: [id number] DC DATE: STATUS: ADM IN [facility] [address] [place] [address] END OF REPORT
--- NOTE | 2018-04-19 15:58 | MORECARE ---
CASE MANAGEMENT DISCHARGE SUMMARY PATIENT: JAI OVALLE UNIT: [id number] ADM DATE: 04/15/18 AGE: 67 : 54 SEX: M ROOM/BED: D.2232 AUTHOR: KELSEY ESPARZA PHYSICIAN: REFERRING PHYSICIAN: MAGGY MURPHY MD DATE OF SERVICE: 04/19/18 Discharge Plan Patient Name: JAI OVALLE Facility: [facility]:[place] : 1950 Planned Disposition: Home Anticipated Discharge Date: Discharge Date: Expected LOS: Initial Reviewer: [email or web address] Initial Review Date: 04/19/2018 Generated: 04/19/18 4:58 pm Comments DCP- Discharge Planning Updated by [email or web address]: Therese Henriquez on 04/19/18 2:[address] Patient Name: JAI OVALLE Admission Status: Elective Accout number: [id number] Admission Date: 04-15-2018 : 1950 Admission Diagnosis:NON-PRESSURE CHRONIC ULCER OF SKIN OF SITES W UNSP SUDEEP Attending: MAGGY MURPHY Current LOS: 4 Anticipated DC Date: Planned Disposition: Home Primary Insurance: MEDICARE A & B Discharge Planning Comments: CM met with patient to complete initial dc planning assessment. CM educated patient on the CM role and verbal consent given by patient to complete assessment. Patient lives at home with his . He is independent with all ADL's and AIDL's. He states he plans on returning home with his and feels this is a safe discharge. He does not have any home health or community resources assisting in the home. He declines needs at this time, states he is not really sure what he needs. States he has gone to [facility] in the past and if needed will do that again. CM will continue to follow and assist with discharge planning/needs. Raw Mill Operator: Therese Henriquez DCPIA - Discharge Planning Initial Assessment Updated by [email or web address]: Therese Henriquez on 04/19/18 3:49 pm * Is the patient Alert and Oriented? Yes * How many steps to enter\exit or inside your home? 2/0 * PCP Joel Pathak * Pharmacy [facility] * Preadmission Environment Home with Family * ADLs Independent * Equipment Cane Other Walker * Other Equipment Knee scooter * List name and contact numbers for known caregivers / representatives who currently or will assist patient after discharge: Monisha - fwwb - [phone] * Verbal permission to speak to the caregivers and representatives has been obtained from the patient. Yes * Community resources currently utilized None * Additional services required to return to the preadmission environment? No * Can the patient safely return to the preadmission environment? Yes * Has this patient been hospitalized within the prior 30 days at any hospital? Yes Last DP export: 04/19/18 2:49 p Patient Name: JAI OVALLE Page [phone] at 1558 All edits/amendments must be made on the electronic document DICTATION DATE: 04/19/181556 SENIOR MANAGER MMCOE: GORDON 04/19/181556 RPT#: [id number] DC DATE: STATUS: ADM IN [facility] [address] [place] [address] END OF REPORT
[2018-04-19 17:33] VITALS: BP 139/84
[2018-04-19 20:00] VITALS: BP 133/88
[2018-04-20] VITALS: BP 140/84
[2018-04-20 04:00] VITALS: BP 137/85
[2018-04-20] MEDS ORDERED: BACTRIM 400-801 TAB PO (08:28)
[2018-04-20] MEDS ORDERED: RIFADIN150 MG PO ×2 (08:29→08:30)
[2018-04-20] MEDS ORDERED: LEVAQUIN750 MG PO (08:29)
[2018-04-20 08:45] VITALS: BP 144/92
[2018-04-20] MEDS ORDERED: HYDROCODON-ACE1 EA10 PO (08:55)
--- NOTE | 2018-04-20 10:12 | MORECARE ---
CASE MANAGEMENT DISCHARGE SUMMARY PATIENT: JAI OVALLE UNIT: [id number] ADM DATE: 04/15/18 AGE: 67 : 54 SEX: M ROOM/BED: D.2232 AUTHOR: KELSEY ESPARZA PHYSICIAN: REFERRING PHYSICIAN: MAGGY MURPHY MD DATE OF SERVICE: 04/20/18 Discharge Plan Patient Name: JAI OVALLE Facility: [facility]:[place] : 1950 Planned Disposition: Home Anticipated Discharge Date: Discharge Date: Expected LOS: Initial Reviewer: [email or web address] Initial Review Date: 04/19/2018 Generated: 04/20/18 11:12 am Comments DCP- Discharge Planning Updated by [email or web address]: Therese Wallacebabita on 04/20/18 9:[address] Received orders for discharge. Verito states he does not need home health, she will change his dressing on Thursday. She is checking on a brace from [facility]. Patient declines needs other than the possible brace. States his will pick him up for discharge. Home today. DCP- Discharge Planning Updated by [email or web address]: Therese Henriquez on 04/19/18 2:[address] Patient Name: JAI OVALLE Admission Status: Elective Accout number: [id number] Admission Date: 04-15-2018 : 1950 Admission Diagnosis:NON-PRESSURE CHRONIC ULCER OF SKIN OF SITES W UNSP SUDEEP Attending: MAGGY MURPHY Current LOS: 4 Anticipated DC Date: Planned Disposition: Home Primary Insurance: MEDICARE A & B Discharge Planning Comments: CM met with patient to complete initial dc planning assessment. CM educated patient on the CM role and verbal consent given by patient to complete assessment. Patient lives at home with his . He is independent with all ADL's and AIDL's. He states he plans on returning home with his and feels this is a safe discharge. He does not have any home health or community resources assisting in the home. He declines needs at this time, states he is not really sure what he needs. States he has gone to [facility] in the past and if needed will do that again. CM will continue to follow and assist with discharge planning/needs. Wide Area Network Engineer: Therese Henriquez DCPIA - Discharge Planning Initial Assessment Updated by [email or web address]: Therese Henriquez on 04/19/18 3:49 pm * Is the patient Alert and Oriented? Yes * How many steps to enter\exit or inside your home? 2/0 * PCP Joel Pathak * Pharmacy [facility] * Preadmission Environment Home with Family * ADLs Independent * Equipment Cane Other Walker * Other Equipment Knee scooter * List name and contact numbers for known caregivers / representatives who currently or will assist patient after discharge: [facility] plpx - [phone] * Verbal permission to speak to the caregivers and representatives has been obtained from the patient. Yes * Community resources currently utilized None * Additional services required to return to the preadmission environment? No * Can the patient safely return to the preadmission environment? Yes * Has this patient been hospitalized within the prior 30 days at any hospital? 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
--- NOTE | 2018-04-21 17:03 | MORECARE ---
CASE MANAGEMENT DISCHARGE SUMMARY PATIENT: JAI OVALLE UNIT: [id number] ADM DATE: 04/15/18 AGE: 67 : 54 SEX: M ROOM/BED: D.2232 AUTHOR: KELSEY ESPARZA PHYSICIAN: REFERRING PHYSICIAN: MAGGY MURPHY MD DATE OF SERVICE: 04/21/18 Discharge Plan Patient Name: JAI OVALLE Facility: [facility]:[place] : 1950 Planned Disposition: Home Anticipated Discharge Date: Discharge Date: 04/20/2018 Expected LOS: 0 Initial Reviewer: [email or web address] Initial Review Date: 04/19/2018 Generated: 04/21/18 6:03 pm Comments DCP- Discharge Planning Updated by [email or web address]: Therese Wallacebabita on 04/20/18 9:[address] Received orders for discharge. Verito states he does not need home health, she will change his dressing on Thursday. She is checking on a brace from [facility]. Patient declines needs other than the possible brace. States his will pick him up for discharge. Home today. DCP- Discharge Planning Updated by [email or web address]: Therese Wallacebabita on 04/19/18 2:[address] Patient Name: JAI OVALLE Admission Status: Elective Accout number: [id number] Admission Date: 04-15-2018 : 1950 Admission Diagnosis:NON-PRESSURE CHRONIC ULCER OF SKIN OF SITES W UNSP SUDEEP Attending: MAGGY MURPHY Current LOS: 4 Anticipated DC Date: Planned Disposition: Home Primary Insurance: MEDICARE A & B Discharge Planning Comments: CM met with patient to complete initial dc planning assessment. CM educated patient on the CM role and verbal consent given by patient to complete assessment. Patient lives at home with his . He is independent with all ADL's and AIDL's. He states he plans on returning home with his and feels this is a safe discharge. He does not have any home health or community resources assisting in the home. He declines needs at this time, states he is not really sure what he needs. States he has gone to [facility] in the past and if needed will do that again. CM will continue to follow and assist with discharge planning/needs. Project Production Engineer: Therese Martinez DCPIA - Discharge Planning Initial Assessment Updated by [email or web address]: Therese Henriquez on 04/19/18 3:49 pm * Is the patient Alert and Oriented? Yes * How many steps to enter\exit or inside your home? 2/0 * PCP Joel Pathak * Pharmacy [facility] * Preadmission Environment Home with Family * ADLs Independent * Equipment Cane Other Walker * Other Equipment Knee scooter * List name and contact numbers for known caregivers / representatives who currently or will assist patient after discharge: [facility] dqio - [phone] * Verbal permission to speak to the caregivers and representatives has been obtained from the patient. Yes * Community resources currently utilized None * Additional services required to return to the preadmission environment? No * Can the patient safely return to the preadmission environment? Yes * Has this patient been hospitalized within the prior 30 days at any hospital? 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 Name: Delivery Method: HAND - Hand Delivered Ivy Days: Prior Verbal Notification: Recipient Understood Notice: Yes Recipient Signature: Yes Med Rec Note Co-signed by Attending: Coverage Notice Comment: IMM delivered, signed, given, copy placed in MR Last DP export: 04/20/18 9:12 a Patient Name: JAI OVALLE Page [id number] at 1703 All edits/amendments must be made on the electronic document DICTATION DATE: 04/21/181702 SALESFORCE BUSINESS ANALYST: GORDON 04/21/181702 RPT#: [id number] DC DATE:04/20/18 STATUS: DIS IN [facility] [address] [place] [address] END OF REPORT
[2018-04-22 18:09] LABS: AEROBE ID Final report (())
== END 2018-04-20 16:11 | disposition home or self-care (01) | DRG 575 ==
LOC: D.OPS 12:28 → D.MS 12:28 → D.PAN 15:00 → D.OPS 15:00 → D.MS 18:31 → D.OPS 18:32 → D.MS 04-20 16:11 → D.PAN 04-22 20:00 → D.OPS 04-22 20:00
PROVIDERS: Anesthesiology; ADMIT Orthopaedic Surgery
PROC: 0HRNXK3 Replacement of Left Foot Skin with Nonautologous Tissue Substitute, Full Thickness, External Approach (ICD-10-PCS; 2018-04-15)
PROC: 0JBR0ZZ Excision of Left Foot Subcutaneous Tissue and Fascia, Open Approach (ICD-10-PCS; principal; 2018-04-15 15:00)
DX: L97.522 Non-pressure chronic ulcer of other part of left foot with fat layer exposed (principal); L08.9 Local infection of the skin and subcutaneous tissue, unspecified; I10 Essential (primary) hypertension; I48.91 Unspecified atrial fibrillation; M19.90 Unspecified osteoarthritis, unspecified site

== ENCOUNTER → 2018-05-18 17:14 | Outpatient (CLI) | payer MEDICARE, BC ==
[2018-04-16 14:12] VITALS: BMI 29.1
[~2018-05-18 17:14] MED LIST changes: +BACTRIM 400-801 TAB PO; +HYDROCODON-ACE1 EA10 PO; +LEVAQUIN750 MG PO; +RIFADIN150 MG PO; +VIBRAMYCIN 100100 MG PO
== END | disposition home or self-care (01) ==
LOC: D.LABREF 17:14
PROVIDERS: ATTEND Orthopaedic Surgery
DX: E11.9 Type 2 diabetes mellitus without complications (principal)